=== PATIENT | female | born 1930 | race Caucasian/White ===

== ENCOUNTER → 2017-03-20 | Outpatient (CLI) | payer MEDICARE ==
[2017-03-20 13:35] LABS: Calcium 9.6 mg/dL (8.4-10.2); Potassium 3.8 mmol/L (3.5-5.1); Total Bilirubin 0.8 mg/dL (0.2-1.3); Total Protein 9.3 g/dL (6.3-8.2)
== END | disposition home or self-care (01) ==
LOC: LABWHC1 12:42
PROVIDERS: ATTEND Internal Medicine Interventional Cardiology
DX: I48.1 Persistent atrial fibrillation (principal)
CPT/HCPCS: 36415; 80053; 84443

== ENCOUNTER 2017-11-23 11:55 | Inpatient (IN) | payer MEDICARE ==
[2017-11-23] MEDS ORDERED: IPRATROPIUM-ALBUTEROL 3 ML NEB INHALATION STA (12:03)
--- NOTE | 2017-11-23 12:09 | ED ---
General Adult HPI - General Stated complaint: Chest pain/ Dift. breathing Time Seen by Provider: 11/23/17 11:55 Source: RN notes reviewed - History of Present Illness Initial comments: This is an 87-year-old female presents emergency Department complaining of shortness of breath and some chest pressure. Patient states sometimes she thinks it's just her anxiety but today with the chest pressure her family was concerned so they sent her in. Patient states she still mildly short of breath at this time. Patient denies any chest pain at this time. Patient states she has had a cough recently but no fever. denies any sputum production. Patient denies any abdominal pain patient denies nausea vomiting diarrhea per patient denies any headache patient denies numbness weakness. Patient denies any dizziness or lightheadedness or near syncopal episode. - Related Data Home Medications Medication Instructions Recorded Confirmed Atorvastatin [Lipitor] 40 mg PO HS 11/23/17 11/23/17 Calcium Carbonate/Vitamin D3 1 tab PO DAILY 11/23/17 11/23/17 [Calcium 600-Vit D3 200 Tablet] Hydrochlorothiazide [Hydrodiuril] 25 mg PO DAILY 11/23/17 11/23/17 Levothyroxine Sodium [Synthroid] 100 mcg PO DAILY 11/23/17 11/23/17 Lisinopril 40 mg PO DAILY 11/23/17 11/23/17 Metoprolol Tartrate [Lopressor] 50 mg PO BID 11/23/17 11/23/17 Multivit-Min/Iron/Folic/Lutein 1 tab PO DAILY 11/23/17 11/23/17 [Centrum Silver Women Tablet] Warfarin Sodium [Coumadin] 2.5 mg PO DAILY 11/23/17 11/23/17 amLODIPine [Norvasc] 5 mg PO DAILY 11/23/17 11/23/17 glipiZIDE XL [Glucotrol XL] 5 mg PO DAILY 11/23/17 11/23/17 Allergies Allergy/AdvReac Type Severity Reaction Status Date / Time No Known Allergies Allergy Verified 11/23/17 13:02 Review of Systems ROS Statement: Those systems with pertinent positive or pertinent negative responses have been documented in the HPI. ROS Other: All systems not noted in ROS Statement are negative. General Exam - General Exam Comments Initial Comments: GENERAL: Patient is well-developed and well-nourished. Patient is nontoxic and well- hydrated and is in mild distress. ENT: Neck is soft and supple. No significant lymphadenopathy is noted. Oropharynx is clear. Moist mucous membranes. Neck has full range of motion without eliciting any pain. EYES: The sclera were anicteric and conjunctiva were pink and moist. Extraocular movements were intact and pupils were equal round and reactive to light. Eyelids were unremarkable. PULMONARY: Patient has crackles in the left base. CARDIOVASCULAR: There is a regular rate and rhythm without any murmurs gallops or rubs. ABDOMEN: Soft and nontender with normal bowel sounds. No palpable organomegaly was noted. There is no palpable pulsatile mass. SKIN: Skin is clear with no lesions or rashes and otherwise unremarkable. NEUROLOGIC: Patient is alert and oriented x3. Cranial nerves II through XII are grossly intact. Motor and sensory are also intact. Normal speech, volume and content. Symmetrical smile. MUSCULOSKELETAL: Normal extremities with adequate strength and full range of motion. No lower extremity swelling or edema. No calf tenderness. LYMPHATICS: No significant lymphadenopathy is noted PSYCHIATRIC: Normal psychiatric evaluation. Normal interpersonal interactions appears functionally intact in deals appropriately with others. No signs of depression. Mild anxiety Course Vital Signs 11/23/17 11/23/17 11/23/17 12:07 12:18 12:24 Temperature 97.6 F Pulse Rate 83 83 86 Pulse Rate [ Apical] Respiratory 21 Rate Blood Pressure 144/73 O2 Sat by Pulse 91 L Oximetry 11/23/17 11/23/17 11/23/17 12:37 12:41 12:47 Temperature Pulse Rate 81 Pulse Rate [ 77 Apical] Respiratory 18 19 Rate Blood Pressure 138/76 O2 Sat by Pulse 90 L Oximetry 11/23/17 12:56 Temperature Pulse Rate 79 Pulse Rate [ Apical] Respiratory 18 Rate Blood Pressure 158/79 O2 Sat by Pulse 96 Oximetry Medical Decision Making - Medical Decision Making EKG shows atrial fibrillation 72 bpm QRS is 84 QT interval 396 QTC is 433. Patient's EKG shows significant ST segment depression in 1 and aVL as well as precordial leads V3 through V6 per patient does have ST segment elevation in lead 3 but no other leads. I called a STEMI overhead and spoke with Dr. Brady Abreu came down to see the patient in emergency department Patient got Nitropaste aspirin Lipitor and heparin. Patient's chest x-ray shows acute pulmonary edema patient received Lasix in the emergency department. EKG was repeated his shows atrial fibrillation 79 bpm QRS is 86 QT interval 382 QTC is 438. Patient's EKG continues to show ST segment depression in 1 and aVL as well as precordial leads V3 through V6 and ST segment depression in only one lead 3 - Lab Data Result diagrams: 11/23/17 12:25 11/23/17 12:25 Lab Results 11/23/17 11/23/17 11/23/17 Range/Units 12:25 12:25 12:25 WBC 10.3 (3.8-10.6) k/uL RBC 3.63 L (3.80-5.40) m/uL Hgb 11.0 L (11.4-16.0) gm/dL Hct 34.1 (34.0-46.0) % MCV 94.0 (80.0-100.0) fL MCH 30.2 (25.0-35.0) pg MCHC 32.1 (31.0-37.0) g/dL RDW 14.4 (11.5-15.5) % Plt Count 268 (150-450) k/uL Neutrophils % 86 % Lymphocytes % 8 % Monocytes % 5 % Eosinophils % 1 % Basophils % 0 % Neutrophils # 8.9 H (1.3-7.7) k/uL Lymphocytes # 0.8 L (1.0-4.8) k/uL Monocytes # 0.5 (0-1.0) k/uL Eosinophils # 0.1 (0-0.7) k/uL Basophils # 0.0 (0-0.2) k/uL Hypochromasia Slight PT 12.8 H (9.0-12.0) sec INR 1.4 H (<1.2) APTT 24.9 (22.0-30.0) sec Sodium 141 (137-145) mmol/L Potassium 3.7 (3.5-5.1) mmol/L Chloride 105 (98-107) mmol/L Carbon Dioxide 26 (22-30) mmol/L Anion Gap 10 mmol/L BUN 25 H (7-17) mg/dL Creatinine 1.10 H (0.52-1.04) mg/dL Est GFR (MDRD) Af Amer 57 (>60 ml/min/1.73 sqM) Est GFR (MDRD) Non-Af 47 (>60 ml/min/1.73 sqM) Glucose 178 H (74-99) mg/dL Calcium 9.2 (8.4-10.2) mg/dL Magnesium 1.5 L (1.6-2.3) mg/dL Total Bilirubin 2.1 H (0.2-1.3) mg/dL AST 33 (14-36) U/L ALT 19 (9-52) U/L Alkaline Phosphatase 126 (38-126) U/L Total Protein 8.1 (6.3-8.2) g/dL Albumin 3.4 L (3.5-5.0) g/dL Critical Care Time Critical Care Time: Yes Total Critical Care Time: 35 Disposition Clinical Impression: NSTEMI (non-ST elevated myocardial infarction), Acute pulmonary edema Disposition: ADMITTED IP TO THIS [facility] Time of Disposition: 12:41
[2017-11-23] MEDS ORDERED: ASPIRIN 81 MG PO STA (12:16)
[2017-11-23] MEDS ORDERED: NITROGLYCERIN OINT 1 INCH/GM PACKET TOPICAL STA (12:17)
[2017-11-23] MEDS ORDERED: HEPARIN SODIUM,PORCINE 5,000 UNIT/ML 1 ML VIAL IV ONE (12:27)
[2017-11-23] MEDS ORDERED: ATORVASTATIN 80 MG TAB PO STA (12:27)
[2017-11-23] MEDS ORDERED: FUROSEMIDE 10 MG/ML 4 ML VIAL IV STA ×2 (12:34→22:41)
[2017-11-23 12:41] LABS: Basophils % (A) 0 %; Eosinophils # (A) 0.1 k/uL (0-0.7); Eosinophils % (A) 1 %; HCT 34.1 % (34.0-46.0); Hypochromasia Slight; Lymphocytes # (A) 0.8 k/uL (1.0-4.8); Lymphocytes % (A) 8 %; MCH 30.2 pg (25.0-35.0); MCHC 32.1 g/dL (31.0-37.0); Mean Platelet Volume 7.6; Monocytes # (A) 0.5 k/uL (0-1.0); Monocytes % (A) 5 %; Neutrophils # (A) 8.9 k/uL (1.3-7.7); Neutrophils % (A) 86 %; Platelet Count 268 k/uL (150-450); RBC 3.63 m/uL (3.80-5.40); RDW 14.4 % (11.5-15.5); WBC 10.3 k/uL (3.8-10.6)
--- NOTE | 2017-11-23 12:44 | XR ---
EXAMINATION TYPE: XR chest 1V portable DATE OF EXAM: 11/23/2017 COMPARISON: NONE INDICATION: Difficulty breathing TECHNIQUE: Single frontal view of the chest is obtained. FINDINGS: The heart size is enlarged. The pulmonary vasculature is prominent. There is diffuse increased lung markings bilaterally. IMPRESSION: 1. Clinical correlation recommended for congestive heart failure
[2017-11-23 12:49] LABS: INR 1.4 (<1.2); Partial Thromboplastin Time 24.9 sec (22.0-30.0); Prothrombin Time 12.8 sec (9.0-12.0)
--- NOTE | 2017-11-23 12:54 | P.CRDCN ---
History of Present Illness Consult date: 11/23/17 Requesting physician: Az Rios Consult reason: chest pain Chief complaint: Chest pain History of present illness: This is a pleasant 87-year-old female who follows regularly with Dr. Garcia in the office. She has a known history of coronary artery disease with prior RCA stents placed in 2002, moderate to severe TR, moderate MR, chronic persistent atrial fibrillation on Coumadin for anticoagulation, hyperlipidemia, peripheral vascular disease, hypertension, diabetes, she presented to the emergency room with symptoms of severe chest heaviness and pressure with associated diaphoresis. An EKG was performed on arrival here which showed atrial fibrillation, ST elevation noted in lead 3, significant ST depression noted in lateral leads. A STEMI was called overhead, at the time of our arrival in the emergency room, patient was currently chest pain-free. Blood pressure 130/60, heart rate in the 70s. Patient has been given aspirin, Lipitor , Nitropaste, and one dose of IV Lasix. The only laboratory data available thus far is her CBC, white blood cell count 10.3, hemoglobin 11, platelet count 268. Chest x-ray suggests mild congestive heart failure. Past Medical History Past Medical History: Hyperlipidemia, Hypertension, Myocardial Infarction (NH) History of Any Multi-Drug Resistant Organisms: None Reported Additional Past Surgical History / Comment(s): stents placed post NH Past Psychological History: Anxiety Smoking Status: Never smoker Past Alcohol Use History: Rare Past Drug Use History: None Reported Medications and Allergies Home Medications Medication Instructions Recorded Confirmed Type Atorvastatin [Lipitor] 40 mg PO HS 11/23/17 11/23/17 History Calcium Carbonate/Vitamin D3 1 tab PO DAILY 11/23/17 11/23/17 History [Calcium 600-Vit D3 200 Tablet] Hydrochlorothiazide [Hydrodiuril] 25 mg PO DAILY 11/23/17 11/23/17 History Levothyroxine Sodium [Synthroid] 100 mcg PO DAILY 11/23/17 11/23/17 History Lisinopril 40 mg PO DAILY 11/23/17 11/23/17 History Metoprolol Tartrate [Lopressor] 50 mg PO BID 11/23/17 11/23/17 History Multivit-Min/Iron/Folic/Lutein 1 tab PO DAILY 11/23/17 11/23/17 History [Centrum Silver Women Tablet] Warfarin Sodium [Coumadin] 2.5 mg PO DAILY 11/23/17 11/23/17 History amLODIPine [Norvasc] 5 mg PO DAILY 11/23/17 11/23/17 History glipiZIDE XL [Glucotrol XL] 5 mg PO DAILY 11/23/17 11/23/17 History Allergies Allergy/AdvReac Type Severity Reaction Status Date / Time No Known Allergies Allergy Verified 11/23/17 12:44 Physical Exam Vitals: Vital Signs Temp Pulse Pulse Resp BP Pulse Ox 11/23/17 12:41 81 18 138/76 90 L 11/23/17 12:37 77 11/23/17 12:24 86 11/23/17 12:18 83 11/23/17 12:07 97.6 F 83 21 144/73 91 L Intake and Output 11/22/17 11/23/17 11/23/17 22:59 06:59 14:59 Other: Weight 61.235 kg Patient Weight 11/24/17 06:59 Weight 61.235 kg PHYSICAL EXAMINATION: HEENT: Head is atraumatic, normocephalic. Pupils equal, round. Neck is supple. There is elevated jugular venous pressure. HEART EXAMINATION: Heart S1 and S2 irregularly irregular there is a systolic ejection murmur heard CHEST EXAMINATION: Lungs reveal fine rales to bilateral bases. ABDOMEN: Soft, nontender. Bowel sounds are heard. No organomegaly noted. EXTREMITIES: 1+ peripheral pulses with no evidence of peripheral edema and no calf tenderness noted. NEUROLOGIC patient is awake, alert and oriented -3. . Results 11/23/17 12:25 CBC 11/23/17 Range/Units 12:25 WBC 10.3 (3.8-10.6) k/uL RBC 3.63 L (3.80-5.40) m/uL Hgb 11.0 L (11.4-16.0) gm/dL Hct 34.1 (34.0-46.0) % Plt Count 268 (150-450) k/uL Intake and Output 11/22/17 11/23/17 11/23/17 22:59 06:59 14:59 Other: Weight 61.235 kg Patient Weight 11/24/17 06:59 Weight 61.235 kg 11/23/17 12:25 EKG Interpretations (text) EKG shows atrial fibrillation with ST elevation noted in leads 3, ST depression noted in lateral leads. Assessment and Plan Plan: Assessment and plan #1 acute myocardial infarction, EKG shows atrial fibrillation with ST elevation in lead 3, mild ST elevation in aVF, with lateral ST depression #2 known history of coronary artery disease with prior RCA stents placed in 2002 #3 hypertension #4 diabetes #5 peripheral vascular disease #6 hyperlipidemia #7 chronic persistent atrial fibrillation on Coumadin for anticoagulation Plan Dr. Abreu came down to the emergency room to see the patient. He also spoke with Dr. Garcia who will be performing a heart catheterization, the risks and the benefits again were explained to the patient and her in detail. Patient will have a stat echocardiogram with Doppler study performed. She did receive aspirin, Lipitor, Nitropaste, and a bolus of IV heparin. Further recommendations will be based on these findings and the patient's clinical course.\ DNP note has been reviewed, I agree with a documented findings and plan of care. Patient was seen and examined.
[2017-11-23 12:59] LABS: Albumin 3.4 g/dL (3.5-5.0); Calcium 9.2 mg/dL (8.4-10.2); Magnesium 1.5 mg/dL (1.6-2.3); Potassium 3.7 mmol/L (3.5-5.1); Total Bilirubin 2.1 mg/dL (0.2-1.3); Total Protein 8.1 g/dL (6.3-8.2)
[2017-11-23 13:21] LABS: Creatine Kinase MB 2.7 ng/mL (0.0-2.4); Troponin I 0.21 ng/mL (0.000-0.034)
[2017-11-23] MEDS ORDERED: SODIUM CHLORIDE 0.9% 1,000 ML IV ONE (13:30)
[2017-11-23] MEDS ORDERED: diphenhydrAMINE 50 MG/ML 1 ML VIAL IVP ONE (13:51)
[2017-11-23] MEDS ORDERED: fentaNYL (PF) 50 MCG/ML 2 ML AMP IV ONE (13:51)
[2017-11-23] MEDS ORDERED: LIDOCAINE 2% INJ 20 MG/ML SQ ONE (13:55)
[2017-11-23] MEDS ORDERED: BIVALIRUDIN 250 MG in SODIUM CHLORIDE 0.9% 50 ML IV ONE ×4 (14:14)
[2017-11-23] MEDS ORDERED: BIVALIRUDIN BOLUS 250 MG/50 ML IV ONE (14:14)
[2017-11-23] MEDS ORDERED: CLOPIDOGREL 75 MG TAB PO ONE (14:19)
[2017-11-23] MEDS ORDERED: IODIXANOL 320 MG/ML 100 ML INTRAARTER ONE (14:43)
[2017-11-23] MEDS ORDERED: ZOLPIDEM 5 MG TAB PO PRN (14:53)
[2017-11-23] MEDS ORDERED: NITROGLYCERIN SL TABS 0.4 MG TAB SUBLINGUAL PRN (14:53)
[2017-11-23] MEDS ORDERED: MAG HYDROX/AL HYDROX/SIMETH 30 ML CUP PO PRN (14:53)
[2017-11-23] MEDS ORDERED: ATROPINE SULFATE 0.1 MG/ML 10ML SYRINGE IV PRN (14:53)
[2017-11-23] MEDS ORDERED: RX INFO: IV CONTRAST WAS GIVEN 1 EACH MISC MISCELLANE PRN (14:53)
[2017-11-23] MEDS ORDERED: HEPARIN SODIUM,PORCINE 5,000 UNIT/ML 1 ML VIAL IV PRN (14:56)
[2017-11-23] MEDS ORDERED: SODIUM CHLORIDE 0.9% 1,000 ML IV SCH (15:00)
--- NOTE | 2017-11-23 15:33 | PTCA ---
PERCUTANEOUSTRANS CORORONARY ANGIOGRAPHY Mrs. Mendez is an 87-year-old female with known history of coronary artery disease, status post angioplasty and stenting of the right coronary artery in 2005, who presented with symptoms of progressive dyspnea as well as evidence of ST-segment depression and mild troponin elevation. In view of that, she underwent cardiac catheterization, was found to have proximal left circumflex after the takeoff of the first obtuse marginal branch that appears to be a chronic occlusion. There was also occlusion of the first diagonal branch with significant disease in the LAD and moderate significant disease in the left main. Because of her overall status, recommendation made regarding possible angioplasty and stenting of the LAD. The procedures, risks and complication were discussed with the patient who is in full understanding and agreement. PROCEDURE: A 6-Slovenian FR4 guiding catheter was introduced into the system. After cannulating the left main, a 0.014 advanced medium weight J-wire was advanced across the lesion and positioned distally. Then a 2.5 x 30 mm Mozec balloon was advanced into the system, but could not cross the proximal lesion. That balloon was removed and another 0.014 Advanced medium weight J-wire was positioned next to the first one in ricky fashion. Subsequently, attempt to advance a 2.0 x 8 mm mini trek and a 1.5 x 6 mm mini trek were unsuccessful in crossing the lesion because of the severe calcification. At that point, the balloon and the guidewire were removed. The guiding catheter removed. Sheath was removed and hemostasis was obtained with deployment of an Angio-Seal. There was no immediate complication. Patient is returned to her room in stable condition. Of note, the patient received Angiomax as well as oral loading dose of clopidogrel. She has no chest discomfort or EKG changes during the procedure. RESULTS: Unsuccessful angioplasty of the LAD because of severe calcification, inability to cross the lesion. RECOMMENDATION: The patient will be evaluated for either continue medical therapy or considering atherectomy. Those findings and recommendation were discussed with the patient who is in full understanding and agreement. DURATION OF THE PROCEDURE: 53 minutes. MMODL / IJN: [id number] /
[2017-11-23 15:37] VITALS: BMI 25.1
--- NOTE | 2017-11-23 15:39 | LTR ---
DATE OF SERVICE: 11/23/2017 RE: Yany Mendez Dear Dr. Rios; I had the pleasure to perform cardiac catheterization on Mrs. Mendez at [facility] on November 23, 2017 and a full copy of the procedure note will be forwarded to you. In brief, she was found to have severe calcification of the coronary arteries with totally occluded left circumflex and first diagonal branch and moderate to severe disease in the distal left main as well as significant disease in the LAD. Attempts to cross the LAD lesion were unsuccessful because of severe calcification. At this time, I will continue medical therapy and evaluate for possible atherectomy that carries a high risk. Depending on her progress, further recommendation will be made. Thank you again for allowing me to participate in your patient's care. Please feel free to call for any questions. Sincerely yours, MD BERT Albrecht / BABATUNDE: [id number] /
[2017-11-23 15:44] LABS: Basophils % (A) 0 %; Eosinophils # (A) 0.1 k/uL (0-0.7); Eosinophils % (A) 1 %; HCT 34.7 % (34.0-46.0); HGB 10.9 gm/dL (11.4-16.0); Hypochromasia Moderate; Lymphocytes # (A) 1.3 k/uL (1.0-4.8); Lymphocytes % (A) 13 %; MCH 29.9 pg (25.0-35.0); MCHC 31.5 g/dL (31.0-37.0); MCV 94.9 fL (80.0-100.0); Mean Platelet Volume 7.3; Monocytes # (A) 0.5 k/uL (0-1.0); Monocytes % (A) 5 %; Neutrophils # (A) 8.3 k/uL (1.3-7.7); Neutrophils % (A) 80 %; Platelet Count 248 k/uL (150-450); RBC 3.66 m/uL (3.80-5.40); RDW 14.4 % (11.5-15.5); WBC 10.3 k/uL (3.8-10.6)
--- NOTE | 2017-11-23 15:57 | CC ---
CARDIAC CATHETERIZATION REPORT Mrs. Mendez is an 87-year-old female known history coronary disease status post stenting of the right coronary artery in 2002, history of chronic atrial fibrillation, hypertension, hyperlipidemia, diabetes mellitus, who presented with symptoms of dyspnea and ST-segment depression with minimal elevation of troponin. She was evaluated by Dr. Abreu and recommendation made regarding cardiac catheterization. The procedures, risks and complication were discussed with the patient who is in full understanding and agreement. PROCEDURE: Patient was brought to cath in fasting semi-sedated state after receiving Versed and Benadryl and achieving moderate conscious sedated state. Using Xylocaine anesthesia and Seldinger technique, a 6-Nigerien sheath was introduced in the right femoral artery. Selective right and left angiography performed using 6-Nigerien 4 bend right Leticia catheters. Multiple views of the coronary artery including hemiaxial views obtained. Following that, a 6-Nigerien tight pigtail catheter was left ventricle and pressures were calculated. Following that the catheters were removed, images were reviewed. FINDINGS: FLUOROSCOPY: There was severe calcification involving all the coronary arteries. LEFT MAIN: This is a large-sized vessel bifurcating left circumflex and left anterior descending artery. Left main coronary artery has a 50 to 60% distal stenosis at the bifurcation. LEFT ANTERIOR DESCENDING ARTERY: This is a large-sized vessel reaching to the apex with a wraparound apex segment, heavily calcified in the proximal and mid segment. The left anterior descending artery proximally has a long tubular lesion in the long area of stenosis with area up to 90%. There is another area of stenosis in the mid segment of 90% as well. The first diagonal branch is totally occluded with no antegrade flow. LEFT CIRCUMFLEX: This vessel is nondominant giving rise to a proximal first obtuse marginal branch. Beyond the first obtuse marginal branch the AV groove and left circumflex is totally occluded with no antegrade flow. RIGHT CORONARY ARTERY: This is a large dominant vessel bifurcating distally PDA posterior segmental branches. The proximal stented segment is patent. The vessel beyond this is diffusely calcified with area of stenosis up to 50% with diffuse intimal disease. LEFT VENTRICULOGRAM: The left ventriculogram was not performed. COLLATERALS: There are collaterals from the right coronary artery toward the distal circumflex. HEMODYNAMICS: There was no gradient across the aortic valve. The left ventricle end- diastolic pressure was 10-12 mmHg. CONCLUSION: 1. Heavily calcified coronary artery. 2. Severe triple-vessel coronary artery disease with a totally occluded distal circumflex as well as the first obtuse marginal branch. 3. Moderate to severe distal left main disease. 4. Severe diffuse disease in the LAD. 5. Moderate disease in the right coronary artery. RECOMMENDATION: I have discussed with the patient the options. One of them is attempted angioplasty and stenting of the LAD. I do not feel that the patient is a good candidate for surgical intervention. Those findings and recommendation were discussed with the patient and she was in full understanding and agreement. MMSTEPHAN / BABATUNDE: [id number] /
[2017-11-23 16:11] LABS: INR 3.4 (<1.2); Prothrombin Time 30.5 sec (9.0-12.0)
[2017-11-23 16:15] LABS: Partial Thromboplastin Time 140.7 sec (22.0-30.0)
--- NOTE | 2017-11-23 16:52 | ECHOF ---
Referral Reason:STEMI MEASUREMENTS -------- HEIGHT: 152.4 cm WEIGHT: 61.2 kg BP: RVIDd: 3.3 cm (< 3.3) IVSd: 1.1 cm (0.6 - 1.1) LVIDd: 3.7 cm (3.9 - 5.3) LVPWd: 1.0 cm (0.6 - 1.1) IVSs: 1.3 cm LVIDs: 3.1 cm LVPWs: 1.1 cm LA Diam: 3.5 cm (2.7 - 3.8) LAESV Index (A-L): 49.57 ml/m Ao Diam: 3.0 cm (2.0 - 3.7) AV Cusp: 1.3 cm (1.5 - 2.6) LA Diam: 4.0 cm (2.7 - 3.8) MV EXCURSION: 15.657 mm (> 18.000) MV EF SLOPE: 54 mm/s (70 - 150) EPSS: 0.4 cm MV E Florin: 1.32 m/s MV DecT: 130 ms MV A Florin: 0.41 m/s MV E/A Ratio: 3.19 RAP: 5.00 mmHg RVSP: 63.96 mmHg FINDINGS -------- Atrial fibrillation. This was a technically adequate study. LV size, wall thickness and systolic function are normal, with an EF greater than 55%. The left willie tricular size is normal. The right ventricle is normal in size. LA is severely dilated >40 ml/m2 The right atrial size is normal. There is mild aortic valve sclerosis. There is mild aortic regurgitation. Mild mitral annular calcification present. Moderate mitral regurgitation is present. Moderate to severe tricuspid regurgitation present. There is moderate pulmonary hypertension. The right ventricular systolic pressure, as measured by Doppler, is 63.96mmHg. There is no pulmonic regurgitation present. The aortic root size is normal. There is no pericardial effusion. CONCLUSIONS -------- 1. Atrial fibrillation. 2. LV size, wall thickness and systolic function are normal, with an EF greater than 55%. 3. The left ventricular size is normal. 4. LA is severely dilated >40 ml/m2 5. There is mild aortic valve sclerosis. 6. There is mild aortic regurgitation. 7. Mild mitral annular calcification present. 8. Moderate mitral regurgitation is present. 9. Moderate to severe tricuspid regurgitation present. 10. There is moderate pulmonary hypertension. 11. The right ventricular systolic pressure, as measured by Doppler, is 63.96mmHg. 12. There is no pulmonic regurgitation present. 13. The aortic root size is normal. 14. There is no pericardial effusion. [employer]ER: Jojo Pryor RDCS
[2017-11-23] MEDS ORDERED: HEPARIN SOD,PORK IN 0.45% NACL 25,000 UNIT in 0.45% NACL 1 500ML.BAG IV SCH (18:00)
[2017-11-23 20:21] LABS: Glucose,Whole Blood 193 mg/dL (75-99)
--- NOTE | 2017-11-23 20:24 | HP ---
HISTORY AND PHYSICAL This is an 87-year-old female who presented to the emergency room with chest pressure and shortness of breath. HISTORY OF PRESENT ILLNESS: The patient over the last couple days has had marked increased shortness of breath with minimal exertion along with a pressure sensation in her chest. This reached a critical point today, when her son came over and she could not get out of bed and was short of breath and brought to the emergency room. The patient denies any nausea, vomiting and no fever or chills associated with this. No unusual cough or hemoptysis, although she has had some chronic coughing. No hemoptysis or marked phlegm production. The patient's past medical history is positive for coronary disease for which she has had coronary artery stenting back in 2002. She has also had chronic atrial fibrillation and a history of hypertension, hyperlipidemia, type 2 diabetes. Surgical history includes cataract surgery, carpal tunnel and previous tubal ligation. There are no known allergies. Also, her medications included: 1. Amlodipine 5 mg daily. 2. Lopressor 50 mg twice a day. 3. Lisinopril 40 mg daily and. 4. Hydrochlorothiazide 25 mg daily. 5. Coumadin 2.5 daily for her atrial fib. 6. Multiple vitamin daily. 7. Levothyroxine 100 mcg daily. 8. Calcium carbonate and vitamin D3 600-200 daily. 9. Lipitor 40 mg at bedtime and. 10.Glipizide XL 5 mg daily. Review of systems is positive in history of present illness. She also denies any unusual headache or visual disturbances. No definite fever or chills. She has had some chronic coughing, but no hemoptysis or phlegm production. No nausea or vomiting. She states she has had some intermittent diarrhea, but no hematochezia. No unusual leg edema. FAMILY HISTORY: Positive for hypertension and diabetes. SOCIAL HISTORY: She lives locally with her . There is no history of smoking or any excessive alcohol intake. PHYSICAL EXAMINATION: She is presently lying flat in bed, in no acute distress. Vital signs reveal a respiratory rate of 29, pulse of 98, blood pressure 116/68 and she is 93% saturated. She has been afebrile. Head is atraumatic. Extraocular movements intact. Neck is supple. No adenopathy, thyromegaly or bruits detected. Lungs were clear to auscultation. Heart tones were somewhat irregular, but rate controlled without definitive murmurs or rubs. Breasts and pelvic are deferred. Lung garcia were clear. Abdomen is soft, nontender without rebound, guarding or masses. Extremity did not have any unusual edema distally and neurologically she is alert. Cranial nerves intact. No focal deficits noted. Laboratory testing revealed a white count of 10.3 with a hemoglobin of 11 and a platelet count of 268. Her INR initially was 1.4. Repeat presently is 3.4 with a PT initially of 24 and a PTT now of 140. Electrolytes were unremarkable with potassium 3.7, her BUN was 25 with creatinine 1.10, giving her a GFR of 47. The random blood sugar was 178. Magnesium was slightly low at 1.5. Total bilirubin elevated at 2.1. Alk phos is normal at 126. AST and ALT were normal. CK is 69 with MB fraction elevated at 2.7 and troponin slightly elevated on presentation to 0.21 with an elevation to 2.15. Albumin slightly low at 3.4. Her BNP is elevated at 2140. The patient's chest x-ray showed some diffuse lung markings to be correlated for congestive heart failure. Her EKG showed atrial fibrillation with ST-segment elevation in lead III. The patient subsequently did undergo cardiac catheterization which revealed a heavily calcified coronary artery, severe triple-vessel coronary artery totally occluded distal circumflex as well of the 1st obtuse marginal branch. There was also moderate severe distal left main disease and diffuse severe disease in the left anterior descending and moderate disease also present in the right coronary artery. Subsequent attempts at angioplasty were unsuccessful secondary to severe calcification in the left anterior descending. Overall impressions bein. Acute ST-segment elevated myocardial infarction with acute on chronic diastolic congestive heart failure, both associated with shortness of breath and angina and EKG ST-segment elevation with a history of previous coronary artery disease , also inability to perform angioplasty. 2. Underlying history of hypertension. 3. Hyperlipidemia. 4. Type 2 diabetes and. 5. Coronary artery disease. 6. Hypothyroidism on replacement. Overall impressions as per Cardiology options appear to be related to medical management versus arthrectomy. This was discussed further with the family and patient at bedside and they will consider options pending further discussion with Cardiology. At this point, patient is continuing on high-dose atorvastatin, Plavix, IV Lasix. The patient is on her thyroid replacement along with her lisinopril, metoprolol and nitroglycerin preparations. Once again, continue medical management pending further recommendations and decisions from family and recommendations from Cardiology. The prognosis is guarded. MMMARIA DEL CARMENL / IJN: [id number] / [place]
[2017-11-23] MEDS ORDERED: ALPRAZolam 0.25 MG TAB PO PRN (20:37)
[2017-11-23] MEDS ORDERED: INSULIN ASPART 100 UNIT/ML 1 ML 10 ML VIAL SQ SCH (21:00)
[2017-11-23] MEDS ORDERED: ATORVASTATIN 80 MG TAB PO SCH (21:00)
[2017-11-23] MEDS ORDERED: METOPROLOL TARTRATE 25 MG TAB PO SCH (21:00)
[2017-11-23 22:02] VITALS: TEMP 98.1
[2017-11-23 22:05] VITALS: RESP 37
[2017-11-23] MEDS ORDERED: EPINEPHrine 10 ML SYRINGE (0.1 MG/ML) ONE (23:00)
--- NOTE | 2017-11-23 23:08 | XR ---
EXAMINATION TYPE: XR chest 1V portable DATE OF EXAM: 11/23/2017 COMPARISON: Today at 12:30 PM HISTORY: Difficulty breathing TECHNIQUE: Single frontal view of the chest is obtained. FINDINGS: There is moderately severe pulmonary edema. Heart appears enlarged. There are chest leads. IMPRESSION: Congestive heart failure with pulmonary edema that is slightly worse than exam earlier t susanna.
[2017-11-24] VITALS: BP 101/62; PULSE 128
[2017-11-24] MEDS ORDERED: LEVOTHYROXINE 100 MCG TAB PO SCH (06:30)
[2017-11-24] MEDS ORDERED: CLOPIDOGREL 75 MG TAB PO SCH (09:00)
[2017-11-24] MEDS ORDERED: LISINOPRIL 10 MG TAB PO SCH (09:00)
[2017-11-24] MEDS ORDERED: ASPIRIN 81 MG PO SCH (09:00)
[2017-11-24] MEDS ORDERED: FUROSEMIDE 10 MG/ML 4 ML VIAL IV SCH (09:00)
[2017-11-24] MEDS ORDERED: CALCIUM CARB-VIT D 500MG-200UN 1 EACH TAB PO SCH (09:00)
[2017-11-24 11:42] LABS: Hemoglobin A1C 6.4 % (4.0-6.0)
[2017-11-24] MEDS ORDERED: MULTIVITAMINS, THERA 1 EACH TAB PO SCH (12:00)
--- NOTE | 2017-11-28 08:01 | DS ---
DISCHARGE SUMMARY Mrs. Mendez was an 87-year-old female who was admitted to the hospital on November 23. The patient was having shortness of breath and a pressure sensation in her chest. She did have some elevated troponin values of 0.21 on presentation and EKG with atrial fibrillation and ST elevation in the lead III. The patient has had known history of coronary artery disease and had had previous stenting. The patient was seen by Cardiology and taken to the catheterization lab where she was found to have severe triple coronary artery disease with total occlusion of the circumflex as well as the first obtuse marginal branch and there was moderate to severe distal left main and diffuse severe disease in the left anterior descending. There were attempts made at angioplasty, which were unsuccessful due to the severe calcification in the left anterior descending artery. The patient was in the intensive care unit. I discussed with her and her son present and readdressed the options per Cardiology. The patient was to consider further but felt at that time that she would likely opt for medical management. During the night though the patient became more short of breath, worsening congestive heart failure. She developed bradycardia and her and family present did not want further aggressive interventions such as life support or intubation. The patient continued to deteriorate hemodynamically and respiratory gooden and a downhill_course led to her expiration. FINAL DISCHARGE DIAGNOSES: Acute ST-segment elevated myocardial infarction causing acute cardiogenic shock with acute on chronic diastolic congestive heart failure and marked calcification of the left anterior descending, precluding angioplasty of the vessel; this being the cause of overall. Other comorbidities include history of hypertension, hyperlipidemia, type 2 diabetes, hypothyroidism. MMODL / IJN: [id number] / [place]
== END 2017-11-23 23:16 | disposition expired ==
LOC: EC 11:55 → 6ICU 12:56
PROVIDERS: ADMIT Internal Medicine; ATTEND Internal Medicine
PROC: 4A023N7 Measurement of Cardiac Sampling and Pressure, Left Heart, Percutaneous Approach (ICD-10-PCS; principal; 2017-11-23 13:32)
PROC: B2111ZZ Fluoroscopy of Multiple Coronary Arteries using Low Osmolar Contrast (ICD-10-PCS; principal; 2017-11-23 13:32)
PROC: 4A023N7 Measurement of Cardiac Sampling and Pressure, Left Heart, Percutaneous Approach (ICD-10-PCS; 2017-11-23 13:32)
DX: I21.4 Non-ST elevation (NSTEMI) myocardial infarction (principal); I50.33 Acute on chronic diastolic (congestive) heart failure; R57.0 Cardiogenic shock; J81.0 Acute pulmonary edema; E11.51 Type 2 diabetes mellitus with diabetic peripheral angiopathy without gangrene; I48.1 Persistent atrial fibrillation; I48.2 Chronic atrial fibrillation; E03.9 Hypothyroidism, unspecified; E78.5 Hyperlipidemia, unspecified; F41.9 Anxiety disorder, unspecified; I11.0 Hypertensive heart disease with heart failure; I25.10 Atherosclerotic heart disease of native coronary artery without angina pectoris; I25.2 Old myocardial infarction; Z79.01 Long term (current) use of anticoagulants; Z79.84 Long term (current) use of oral hypoglycemic drugs; Z79.899 Other long term (current) drug therapy; Z82.49 Family history of ischemic heart disease and other diseases of the circulatory system; Z83.3 Family history of diabetes mellitus; Z95.5 Presence of coronary angioplasty implant and graft
CPT/HCPCS: 36415; 71045; 80053; 82550; 82553; 83036; 83735; 83880; 84484; 85025; 85610; 85730; 87040; 93005; 93306; 93458; 94640; 96374; 96375; 99291